=== PATIENT | female | born 1960 | race Caucasian/White ===

== ENCOUNTER 2018-01-28 07:40 | Day surgery (SDC) | payer MEDICARE, MEDICAID ==
[~2018-01-28] VITALS: Ht 160 cm; Wt 127.0 kg
[~2018-01-28 07:40] MED LIST: AMOXICILLIN500 MG PO; ASPIRIN 81 LOW81 MG; ATORVASTATIN CA20 MG PO; B-12500 MC2 PO; CLONAZEPAM0.5 MG PO; CYMBALTA30 MG PO; CYMBALTA60 MG PO; FOLIC ACID1 MG PO; HYDROXYCHLOR200 M1 PO; LISINOPRIL10 MG PO; METOPROL TAR25 MG PO; MONTELUKAST SOD10 MG PO; NITROSTAT0.4 MG SL; OMEPRAZOLE10 MG PO; PROAIR HFA IN; RHEUMATREX2.5 M1 PO; SYMBICORT1 AE1 IN; VITAMIN D32000 UNIT PO
[2018-01-28 11:04] VITALS: BP 103/51
== END 2018-01-28 10:40 | disposition home or self-care (01) ==
LOC: ENDO 07:40
PROVIDERS: ATTEND Internal Medicine Gastroenterology
PROC: 0DBN8ZX Excision of Sigmoid Colon, Via Natural or Artificial Opening Endoscopic, Diagnostic (ICD-10-PCS; principal; 2018-01-28)
PROC: 0D758ZZ Dilation of Esophagus, Via Natural or Artificial Opening Endoscopic (ICD-10-PCS; 2018-01-28)
PROC: 0DB48ZX Excision of Esophagogastric Junction, Via Natural or Artificial Opening Endoscopic, Diagnostic (ICD-10-PCS; 2018-01-28)
PROC: 0DB58ZX Excision of Esophagus, Via Natural or Artificial Opening Endoscopic, Diagnostic (ICD-10-PCS; 2018-01-28)
DX: K59.00 Constipation, unspecified (principal); D12.5 Benign neoplasm of sigmoid colon; K64.4 Residual hemorrhoidal skin tags; K64.8 Other hemorrhoids; R10.12 Left upper quadrant pain; K21.0 Gastro-esophageal reflux disease with esophagitis; K22.8 Other specified diseases of esophagus; K29.70 Gastritis, unspecified, without bleeding; K44.9 Diaphragmatic hernia without obstruction or gangrene; I10 Essential (primary) hypertension; E78.00 Pure hypercholesterolemia, unspecified; J44.9 Chronic obstructive pulmonary disease, unspecified; G47.30 Sleep apnea, unspecified; F32.9 Major depressive disorder, single episode, unspecified; Z79.899 Other long term (current) drug therapy